=== PATIENT | female | born 1980 | race Caucasian/White ===

== ENCOUNTER 2020-06-06 00:30 | Emergency (ER) | payer SELFPAY ==
[2020-06-06] MEDS ORDERED: Ketorolac 30 MG/ML SDV IVPUSH ONE (00:59)
[2020-06-06] MEDS ORDERED: Ketorolac 30 MG/ML SDV ONE (01:02)
--- NOTE | 2020-06-06 01:12 | EDM.PDOC ---
ED HPI GENERAL MEDICAL PROBLEM - General Chief Complaint: Abdominal Pain Stated Complaint: ABD AND BACK PAIN RT SIDE Time Seen by Provider: 06/06/20 00:32 Source of Information: Reports: Patient, Family History Limitations: Reports: No Limitations - History of Present Illness INITIAL COMMENTS - FREE TEXT/NARRATIVE: 40-year-old female developed fairly sudden onset of right flank and right lower abdominal pain 2 hours ago, it is very persistent and is severe. She feels somewhat nauseated but not vomiting, she has not had pain like this in the past. No fevers or chills. She is having trouble sitting still, it does not hurt to move. Pain started in her right flank. No dysuria or increased urinary frequency. Onset: Sudden Duration: Hour(s): (2 hours) Location: Reports: Other (Right flank and right abdomen) Quality: Reports: Sharp, Stabbing Associated Symptoms: Reports: Other (Mild nausea) right abd Pain Score (Numeric/FACES): 10 - Related Data Allergies Allergy/AdvReac Type Severity Reaction Status Date / Time No Known Allergies Allergy Verified 06/06/20 00:42 Home Meds: Home Meds Cyclobenzaprine HCl 5 mg PO DAILY PRN 06/06/20 [History] Past Medical History [employer] History: Reports: Musculoskeletal History: Reports: Fracture - Past Surgical History Musculoskeletal Surgical History: Reports: Shoulder Surgery Social & Family History - Tobacco Use Tobacco Use Status *Q: Never Tobacco User - Recreational Drug Use Recreational Drug Use: No ED ROS GENERAL - Review of Systems Review Of Systems: See Below Constitutional: Reports: Malaise. Denies: Fever, Chills HEENT: Reports: No Symptoms Respiratory: Reports: No Symptoms Cardiovascular: Reports: No Symptoms GI/Abdominal: Reports: Abdominal Pain (Some pain in the right lower quadrant area) : Reports: Flank Pain Skin: Reports: No Symptoms Neurological: Reports: No Symptoms ED EXAM, GENERAL - Physical Exam Exam: See Below Exam Limited By: No Limitations General Appearance: Alert, Moderate Distress Respiratory/Chest: No Respiratory Distress Cardiovascular: Regular Rate, Rhythm GI/Abdominal: Soft, Tender (No significant palpation tenderness to the upper abdomen) Neurological: Alert, Oriented Psychiatric: Anxious Skin Exam: Warm, Dry Course - Vital Signs Last Recorded V/S: Last Vital Signs Temp 97.1 F 06/06/20 00:45 Pulse 72 06/06/20 00:45 Resp 22 H 06/06/20 00:45 BP 154/88 H 06/06/20 00:45 Pulse Ox 96 06/06/20 00:45 - Orders/Labs/Meds Labs: Laboratory Tests 06/06/20 06/06/20 Range/Units 00:57 01:06 Urine Color Yellow (YELLOW) Urine Appearance Slightly cloudy A (CLEAR) Urine pH 5.5 (5.0-8.0) Ur Specific [place] >= 1.030 (1.008-1.030) Urine Protein 100 H (NEGATIVE) mg/dL Urine Glucose (UA) Negative (NEGATIVE) mg/dL Urine Ketones Negative (NEGATIVE) mg/dL Urine Occult Blood Trace-intact H (NEGATIVE) Urine Nitrite Negative (NEGATIVE) Urine Bilirubin Negative (NEGATIVE) Urine Urobilinogen 0.2 (0.2-1.0) EU/dL Ur Leukocyte Esterase Negative (NEGATIVE) Urine RBC 0-5 (0-5) Urine WBC 0-5 (0-5) Ur Epithelial Cells Moderate Amorphous Sediment Not seen Urine Bacteria Many Urine Mucus Not seen Urine HCG, Qual Negative Meds: Medications Discontinued Medications Generic Name Dose Route Start Last Admin Trade Name Freq PRN Reason Stop Dose Admin Fentanyl 50 mcg 06/06/20 01:41 06/06/20 01:48 Sublimaze IVPUSH 06/06/20 01:42 50 mcg ONETIME ONE Administration Ketorolac Tromethamine 30 mg 06/06/20 00:59 06/06/20 01:03 Toradol IVPUSH 06/06/20 01:00 30 mg ONETIME ONE Administration Ketorolac Tromethamine Confirm 06/06/20 01:02 06/06/20 01:06 Toradol Administered 06/06/20 01:03 Not Given Dose 30 mg .ROUTE .STK-MED ONE Tamsulosin HCl 0.4 mg 06/06/20 01:35 06/06/20 01:41 Flomax PO 06/06/20 01:36 0.4 mg ONETIME ONE Administration - Re-Assessments/Exams Free Text/Narrative Re-Assessment/Exam: 06/06/20 01:30 A UA and urine was obtained. The urine did have many bacteria but also epithelial cells, possibly a contaminant. No WBCs RBCs or nitrite positive. Patient was sent back for a noncontrast CT of the abdomen and pelvis. She is also given 30 mg of IV Toradol. 06/06/20 01:51 CT scan confirmed a distal left ureteral stone with mild hydronephrosis. She was given 0.4 mg of oral Flomax and 50 mcg of fentanyl. She will be discharged with 10 additional doses of Toradol along with 10 doses of Percocet to take for extra pain control and can return at any time if not improving satisfactorily. Also recheck in 2 to 3 days if symptoms are not completely resolved. 06/06/20 02:22 IMPRESSION: 1. Nephrolithiasis with moderate right hydronephrosis and a 3 millimeter obstructing stone at the very distal right ureter. 2. Fatty infiltration of the liver. 3. Old granulomatous disease. Departure - Departure Time of Disposition: 02:18 Disposition: Home, Self-Care 01 Clinical Impression: Right nephrolithiasis, Renal colic on right side - Discharge Information Instructions: Kidney Stones Referrals: PCP,None [Primary Care Provider] - Forms: ED Department Discharge Care Plan Goals: Repeat dose of Toradol every 6 hours if pain is persistent and add 1-2 Percocet every 3-4 hours for extra pain control. Stay hydrated, and return anytime if worsening despite treatment. Also consider rechecking in 24 to 48 hours if symptoms are not completely resolved. Sepsis Event Note (ED) - Evaluation Sepsis Screening Result: No Definite Risk - Focused Exam Vital Signs: Vital Signs Temp Pulse Resp BP Pulse Ox 06/06/20 00:45 97.1 F 72 22 H 154/88 H 96
[2020-06-06] MEDS ORDERED: Tamsulosin 0.4 MG Cap.ER PO ONE (01:35)
[2020-06-06] MEDS ORDERED: fentaNYL 100 MCG/2 ML SDV IVPUSH ONE (01:41)
--- NOTE | 2020-06-06 02:03 | CRLCT ---
INDICATION: Right flank pain TECHNIQUE: Axial images were obtained from the diaphragm to the pubic symphysis. Reformats were obtained in the coronal and sagittal plane. IV Contrast: None Oral Contrast: None COMPARISON: None. FINDINGS: Lower chest: Unremarkable. Liver: Diffusely decreased density liver with focal sparing adjacent to the gallbladder fossa. Gallbladder and bile ducts: Unremarkable. No stones or inflammation. No biliary dilatation. Spleen: Multiple calcifications within the spleen consistent with old granulomatous disease. Pancreas: Unremarkable. No mass or inflammation. Adrenal glands: Unremarkable. No nodules. Kidneys: Moderate right hydronephrosis with a 3 millimeter stone just above the right ureterovesicular junction. Vasculature: Unremarkable. GI tract: The stomach is unremarkable. No dilated loops of large or small intestine appendix unremarkable. Fat containing umbilical hernia. Pelvis: Decompressed bladder. Uterus anteverted with an intrauterine device. Right ovarian cyst measuring 19 millimeters. Bones: Unremarkable for age. IMPRESSION: 1. Nephrolithiasis with moderate right hydronephrosis and a 3 millimeter obstructing stone at the very distal right ureter. 2. Fatty infiltration of the liver. 3. Old granulomatous disease. Please note that all CT scans at this facility use dose modulation, iterative reconstruction, and/or weight-based dosing when appropriate to reduce radiation dose to as low as reasonably achievable. Dictated by Lawrence Villaseñor MD @ Jun 06 2020 1:48AM Signed by Dr. Lawrence Villaseñor @ Jun 06 2020 2:01AM
== END 2020-06-06 02:18 | disposition home or self-care (01) ==
LOC: JP.ED 00:30
DX: N13.2 Hydronephrosis with renal and ureteral calculous obstruction (principal)
CPT/HCPCS: 74176; 81001; 81025; 96374; 96375; 99284; 99284-25; A9270-GY; J1885; J3010